=== PATIENT | male | born 1955 | race Caucasian/White ===

== ENCOUNTER → 2016-07-08 | Outpatient (CLI) | payer OTHER ==
[~2016-07-08] MED LIST: CZR25 PO; HYDR-3763 PO; IBUP-1050 PO; LORA10TA5 PO; METH-307 PO
[2016-07-08 09:50] LABS: ALT/SGPT 44 U/L (12-78); AST/SGOT 22 U/L (15-37); BLOOD UREA NITROGEN 18 mg/dl (7-18); BUN/CREATININE RATIO 14.9 (10-20); CALCIUM 9.3 mg/dl (8.5-10.1); CARBON DIOXIDE 21 mmol/L (21-32); CHLORIDE 109 mmol/L (98-107); CHOLESTEROL 200 mg/dl (0-200); GLUCOSE 98 mg/dl (70-99); POTASSIUM 4.4 mmol/L (3.5-5.1); SODIUM 141 mmol/L (136-145); TRIGLYCERIDES 191 mg/dl (0-150); VERY LOW DENSITY LIPOPROT CALC 38 mg/dl
[2016-07-08 09:52] LABS: ALB/GLOB RATIO 1.1 (0.9-2); ALKALINE PHOSPHATASE 51 U/L (45-117); CHOLESTEROL/HDL RATIO 6.5; HDL CHOLESTEROL 31 mg/dl; LDL CHOLESTEROL CALCULATED 131 mg/dl
== END | disposition home or self-care (01) ==
LOC: C.LAB1850 07:52
PROVIDERS: ATTEND Internal Medicine
DX: E78.5 Hyperlipidemia, unspecified (principal); C61 Malignant neoplasm of prostate

== ENCOUNTER → 2016-11-16 | Outpatient (CLI) | payer OTHER | END | disposition home or self-care (01) | LOC: C.LAB1850 11:54 | PROVIDERS: ATTEND Urology | DX: Z85.46 Personal history of malignant neoplasm of prostate (principal) ==

== ENCOUNTER 2017-02-14 05:13 | Day surgery (SDC) | payer BC, OTHER ==
[2017-01-31 11:07] VITALS: BMI 48.0
--- NOTE | 2017-01-31 11:40 | PAT Medication Instructions ---
Service Date Jan 31, 2017. Current Home Medication List Hydrocodon/Acetaminophen 10MG/300MG (Vicodin Hp (10MG/300MG)), 1 TAB PO TID PRN for Pain Ibuprofen (Advil), 200-600 MG PO Q8 PRN for Pain Loratadine (Claritin), 10 MG PO QPM PRN for ALLERGIES Losartan Potassium (Losartan Potassium), 1 TAB PO QAM Methocarbamol (Robaxin), 750 MG PO BID Medication Instructions For Your Scheduled Surgery - Hold the following medications 2 weeks prior to surgery per surgeon's instructions: Ibuprofen (Advil), 200-600 MG PO Q8 PRN for Pain - Hold the following medications the morning of surgery: Methocarbamol (Robaxin), 750 MG PO BID Losartan Potassium (Losartan Potassium), 1 TAB PO QAM - Take the following medications the morning of surgery with a sip of water OTHERWISE NOTHING TO EAT OR DRINK AFTER MIDNIGHT: Hydrocodon/Acetaminophen 10MG/300MG (Vicodin Hp (10MG/300MG)), 1 TAB PO TID PRN for Pain (if needed; up to 4 hours prior to surgery) - Take the following medications as scheduled the night before surgery: Hydrocodon/Acetaminophen 10MG/300MG (Vicodin Hp (10MG/300MG)), 1 TAB PO TID PRN for Pain Methocarbamol (Robaxin), 750 MG PO BID Loratadine (Claritin), 10 MG PO QPM PRN for ALLERGIES If you have any questions please call us at [phone] or [phone] or [phone]
--- NOTE | 2017-01-31 12:27 | DIAGNOSTIC IMAGING REPORT ---
CHEST PREADMISSION(PA/LAT) CLINICAL HISTORY: 61 years-old Male presenting with preoperative assessment, asymptomatic. TECHNIQUE: PA and lateral views of the chest were obtained. COMPARISON: None. FINDINGS: Cardiomediastinal silhouette normal. Lungs and pleural spaces clear. Partially visualized posterior cervical fusion hardware. Degenerative changes of the spine. Upper abdomen normal. IMPRESSION: 1. No acute cardiopulmonary disease. Electronically signed by: Francisco Engel M.D. 01/31/2017 12:25 PM Dictated Date/Time: 01/31/2017 12:25 PM
[2017-01-31 13:00] LABS: BASO % 1.2 %; BASO ABS # 0.08 K/uL (0-0.2); COMPLETE YES; EOS % 3.5 %; HEMATOCRIT 47.4 % (42-52); IG% 0.4 %; LYMPH % 23.9 %; LYMPH ABS # 1.64 K/uL (1.2-3.4); MEAN CELL VOLUME 93.7 fL (80-100); MEAN CORPUSCULAR HEMOGLOBIN 30.8 pg (25-34); MEAN CORPUSCULAR HGB CONC 32.9 g/dl (32-36); MEAN PLATELET VOLUME 9.4 fL (7.4-10.4); MONO % 9.8 %; NEUT % 61.2 %; PLATELET COUNT 282 K/uL (130-400); RED BLOOD COUNT 5.06 M/uL (4.7-6.1); WHITE BLOOD COUNT 6.87 K/uL (4.8-10.8)
[2017-01-31 13:25] LABS: URINE APPEARANCE CLEAR (CLEAR); URINE BILIRUBIN NEG (NEG); URINE COLOR YELLOW; URINE NITRITE NEG (NEG); URINE PH 6.5 (4.5-7.5); URINE SPECIFIC GRAVITY 1.017 (1.000-1.030); UROBILINOGEN NEG (NEG)
[2017-01-31 13:28] LABS: MANUAL MICROSCOPIC REQUIRED? NO; REVIEW REQ? NO
[2017-01-31 13:42] LABS: BUN/CREATININE RATIO 15.8 (10-20); CALCIUM 9.4 mg/dl (8.5-10.1); CREATININE 1.2 mg/dl (0.60-1.40); POTASSIUM 4.5 mmol/L (3.5-5.1)
[~2017-02-14] VITALS: Ht 170.2 cm; Wt 140.1 kg
[2017-02-14 05:35] VITALS: BP 156/97; PULSE 60; TEMP 37.2; O2SAT 96; Ht 170.2 cm; Wt 140.1 kg
[2017-02-14] MEDS ORDERED: LACTATED RINGER'S 1000ML 1,000 ML IV SCH (06:00)
[2017-02-14] MEDS ORDERED: CEFAZOLIN 3000 MG/65 ML D5W IV SCH (06:00)
--- NOTE | 2017-02-14 06:47 | History & Physical Bridge Note ---
H&P Re-Evaluation Bridge Note: I have examined the patient, reviewed the History & Physical and in the interval since the performance of the History & Physical I have noted the following changes of clinical significance: No changes noted
[2017-02-14] MEDS ORDERED: MIDAZOLAM HCL 1 MG/ML 2ML VIAL ONE (06:54)
[2017-02-14] MEDS ORDERED: LIDOCAINE HCL 2% 2 ML VIAL (20MG/ML) ONE (06:54)
[2017-02-14] MEDS ORDERED: PROPOFOL IV EMULSION 10 MG/ML 20 ML VIAL IV ONE (06:54)
[2017-02-14] MEDS ORDERED: DEXAMETHASONE SOD INJ 4 MG/ML VIAL ONE (06:54)
[2017-02-14] MEDS ORDERED: FENTANYL CITRATE INJ 50 MCG/1 ML 2 ML VIAL ONE (06:54)
[2017-02-14] MEDS ORDERED: ONDANSETRON INJ 2 MG/ML 2 ML VIAL ONE (06:54)
[2017-02-14] MEDS ORDERED: CEFAZOLIN SOD 1 GM VIAL ONE (07:13)
[2017-02-14] MEDS ORDERED: LIDOCAINE HCL 1% 20 ML VIAL ONE (07:13)
[2017-02-14] MEDS ORDERED: ATROPINE SULFATE 0.1 MG/ML 5ML SYR IV PRN (08:15)
[2017-02-14] MEDS ORDERED: ONDANSETRON INJ 2 MG/ML 2 ML VIAL IV PRN (08:15)
[2017-02-14] MEDS ORDERED: EpHEDrine SULFATE INJ 50 MG/ML AMP IV PRN (08:15)
--- NOTE | 2017-02-14 08:51 | Discharge Instructions ---
Discharge Instructions Date of Service Feb 14, 2017. Visit Reason for Visit: Prostate Cancer Discharge Discharge Diagnosis / Problem: prostate cancer Discharge Goals Goal(s): Therapeutic intervention Activity Recommendations Activity Limitations: per Instructions/Follow-up section Lifting Limitations: no more than 10 pounds Exercise/Sports Limitations: until after follow-up appointment May Resume Sexual Activity: after follow-up appointment Shower/Bathe: tomorrow Driving or Machine Use: resume 3 days after discharge Anesthesia . Post Anesthesia Instructions: If you have had General Anesthesia or IV Sedation: * Do not drive today. * Resume driving when surgeon permits. * Do not make important decisions or sign legal documents today. * Call surgeon for: 1. Temperature elevations greater than 101 degrees F. 2. Uncontrollable pain. 3. Excessive bleeding. 4. Persistent nausea and vomiting. 5. Medication intolerance (nausea, vomiting or rash). * For nausea and vomiting use only clear liquids such as: tea, soda, bouillon until nausea subsides, then gradually increase diet as tolerated. * If you have any concerns or questions, call your surgeon's office. If physician is unavailable and it is an emergency, call 911 or go to the nearest emergency room. . Diet Recommendations Recommended Home Diet: resume previous diet Procedures Procedures Performed: Bilateral Scrotal Orchiectomy (Simple) Pending Studies Studies pending at discharge: no Medical Emergencies . Who to Call and When: Medical Emergencies: If at any time you feel your situation is an emergency, please call 911 immediately. . Non-Emergent Contact Non-Emergency issues call your: Urologist Call Non-Emergent contact if: temperature is above 101.5, your pain is not controlled . . "Provider Documentation" section prepared by Silas Rondon. .
[2017-02-14] MEDS: FENTANYL CITRATE INJ 50 MCG/1 ML 2 ML VIAL IV PRN ×4 (08:57→09:19)
[2017-02-14] MEDS ORDERED: OXYCODONE/ACETAMINOPHEN 7.5-325 TAB PO PRN (09:00)
[2017-02-14] MEDS: HYDROmorphone INJ 1 MG/ML SYR IV PRN ×2 (09:22→09:27)
--- NOTE | 2017-02-14 10:12 | Anesthesiology Progress Note ---
Anesthesia Post Op Note Date & Time Feb 14, 2017 at 10:11 Vital Signs Pain Intensity: 4 Vital Signs Past 12 Hours Date Time Temp Pulse Resp B/P (MAP) Pulse Ox O2 Delivery O2 Flow Rate FiO2 02/14/17 10:08 68 14 94 02/14/17 10:08 71 14 02/14/17 10:06 157/102 02/14/17 10:03 62 13 95 02/14/17 10:03 64 13 02/14/17 10:01 178/89 02/14/17 09:58 62 17 97 02/14/17 09:58 60 17 02/14/17 09:57 59 13 02/14/17 09:57 60 13 97 02/14/17 09:56 158/89 02/14/17 09:52 52 12 02/14/17 09:52 48 12 96 02/14/17 09:51 160/95 02/14/17 09:50 56 14 97 02/14/17 09:50 56 14 02/14/17 09:48 164/91 02/14/17 09:46 170/93 02/14/17 09:45 62 13 96 02/14/17 09:45 62 13 02/14/17 09:41 163/95 02/14/17 09:40 55 15 97 02/14/17 09:40 58 15 02/14/17 09:39 61 15 02/14/17 09:39 61 15 96 02/14/17 09:36 155/97 02/14/17 09:34 64 14 02/14/17 09:34 61 14 171/97 96 02/14/17 09:31 153/104 02/14/17 09:31 36.7 61 16 155/97 96 Room Air Nasal Cannula 02/14/17 09:29 60 14 02/14/17 09:29 59 14 97 02/14/17 09:28 58 13 02/14/17 09:28 56 13 95 02/14/17 09:26 149/92 02/14/17 09:23 60 20 02/14/17 09:23 62 20 98 02/14/17 09:21 160/86 02/14/17 09:18 60 10 02/14/17 09:18 59 10 96 02/14/17 09:17 171/93 02/14/17 09:16 183/102 02/14/17 09:13 63 11 02/14/17 09:13 63 11 99 02/14/17 09:11 162/92 02/14/17 09:08 60 17 02/14/17 09:08 60 17 98 02/14/17 09:06 161/102 02/14/17 09:03 66 10 97 02/14/17 09:03 66 10 02/14/17 09:01 147/91 02/14/17 08:58 62 14 97 02/14/17 08:58 63 14 02/14/17 08:56 153/87 02/14/17 08:53 62 16 98 02/14/17 08:53 61 16 02/14/17 08:51 150/97 02/14/17 08:49 154/97 02/14/17 08:48 69 12 02/14/17 08:48 69 12 98 02/14/17 08:48 36.0 63 16 154/97 96 Nasal Cannula 10 02/14/17 05:35 37.2 60 20 156/97 (116) 96 Room Air Notes Mental Status: alert / awake / arousable, participated in evaluation Pt Amnestic to Procedure: Yes Nausea / Vomiting: adequately controlled Pain: adequately controlled Airway Patency, RR, SpO2: stable & adequate BP & HR: stable & adequate Hydration State: stable & adequate Anesthetic Complications: no major complications apparent
--- NOTE | 2017-02-14 10:27 | [facility] Operative Report ---
Operative Report Operative Date Feb 14, 2017. Pre-Operative Diagnosis Malignant neoplasm of prostate Post-Operative Diagnosis Malignant neoplasm of prostate Procedure(s) Performed Bilateral Scrotal Orchiectomy (Simple) Surgeon Dr. Silas Rondon Atv Mechanic Surgeon(s) None Estimated Blood Loss 5mL Findings Normal testicles left and right. The right testicle was somewhat scarred in from a prior hydrocelectomy Specimens Specimen A. Right Testes B. Left Testes Drains none Anesthesia Gen. 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 He has elected to have a bilateral scrotal orchiectomy Description of Procedure Patient was brought to the operating room placed supine on the table. After the induction of an adequate general anesthetic and appropriate timeout patient' s lower abdomen and genitalia were prepped with Betadine and draped in a sterile fashion. An incision was made along the median raphae of the scrotum being carried down through skin and subcutaneous tissues through the dartos the right testicle was then brought over to the incision. This testicle was somewhat adherent to the surrounding tissues. After dissecting the right testicle free from the surrounding tissues the vas was identified and dissected free from the rest of the cord clamped and ligated with 0 silk the cord structures were then into packets they were clamped transected and then the proximal ends were ligated with a 0 silk ligature and then a 0 silk suture ligature after completing the removal of the right testicle identical procedure was performed on the left side. After removing both testicles any bleeding points were coagulated the wound was irrigated with sterile saline and reinspected there was no evidence of any bleeding from the cord structures the wound was then closed in the following fashion. The dartos layer was reapproximated with a running 2-0 Vicryl stitch. The skin was then closed with interrupted 2-0 chromic. The incision site was then infiltrated with 5 cc of 1 % plain lidocaine. The wound was then washed and dried and Xeroform gauze fluff gauze and a scrotal support were applied. All needle sponges and instrument counts were correct at the end of the case. The patient tolerated the procedure well and was taken to the recovery room in stable condition I attest to the content of the Intraoperative Record and any orders documented therein. Any exceptions are noted below.
[2017-02-14 10:30] VITALS: BP 160/48; PULSE 63; TEMP 36.9; O2SAT 93
[2017-02-14 11:10] VITALS: BP 165/78; PULSE 66; TEMP 36.8; O2SAT 94
== END 2017-02-14 11:24 | disposition home or self-care (01) ==
LOC: C.ACU 05:13
PROVIDERS: ATTEND Urology
DX: C61 Malignant neoplasm of prostate (principal); N50.0 Atrophy of testis; I10 Essential (primary) hypertension; E78.5 Hyperlipidemia, unspecified; R73.9 Hyperglycemia, unspecified; E66.01 Morbid (severe) obesity due to excess calories; Z79.899 Other long term (current) drug therapy

== ENCOUNTER → 2017-04-18 | Outpatient (CLI) | payer BC | END | disposition home or self-care (01) | LOC: C.LABPBG 13:05 | PROVIDERS: ATTEND Urology | DX: C61 Malignant neoplasm of prostate (principal) ==

== ENCOUNTER → 2017-12-27 | Outpatient (CLI) | payer BC ==
[~2017-12-27] MED LIST changes: +HYDR-4079 PO; -LORA10TA5 PO; +LORA10TA6 PO
--- NOTE | 2017-12-27 10:35 | DIAGNOSTIC IMAGING REPORT ---
C-SPINE ROUTINE W/FLEX EXT HISTORY: Pain CERVICALGIA,CERVICAL POST LAMINECTOMY SYNDROM COMPARISON: None. FINDINGS: The cervical spine is imaged in multiple projections with additional images where with the patient in flexion as well as extension. There are postoperative changes produces described consistent with laminectomy and fusion at the low cervical and upper thoracic region. The low cervical fusion is anterior with the upper thoracic fusion posterior. There is no evidence for subluxation with the patient in flexion or extension. Fusion sites appear to be intact. No subluxation. Disc spaces are preserved. Prevertebral soft tissues and the atlantodens interval are intact. IMPRESSION: 1. Degenerative and postoperative change. 2. No evidence for subluxation with the patient in flexion or extension. The above report was generated using voice recognition software. It may contain grammatical, syntax or spelling errors. Electronically signed by: Bhanu Fischer M.D. 12/27/2017 10:33 AM Dictated Date/Time: 12/27/2017 10:31 AM
--- NOTE | 2017-12-27 11:12 | DIAGNOSTIC IMAGING REPORT ---
THORACIC SPINE 3 VIEWS ROUTINE HISTORY: Pain CERVICALGIA,CERVICAL POST LAMINECTOMY SYNDROM COMPARISON: None. FINDINGS: There is no fracture. No subluxation. Moderate generalized degenerative disc change throughout. No evidence for compression deformity. Moderate reactive osteophytic change throughout. IMPRESSION: Moderate generalized degenerative change of the entire thoracic region. No acute process. Postoperative changes low cervical and upper thoracic region previously described. The above report was generated using voice recognition software. It may contain grammatical, syntax or spelling errors. Electronically signed by: Bhanu Fischer M.D. 12/27/2017 11:11 AM Dictated Date/Time: 12/27/2017 11:10 AM
== END | disposition home or self-care (01) ==
LOC: C.RADBC 09:49
PROVIDERS: ATTEND Physician Assistant
DX: M47.812 Spondylosis without myelopathy or radiculopathy, cervical region (principal); M47.814 Spondylosis without myelopathy or radiculopathy, thoracic region; M96.1 Postlaminectomy syndrome, not elsewhere classified

== ENCOUNTER → 2018-01-13 | Outpatient (CLI) | payer BC ==
[~2018-01-13] MED LIST changes: -HYDR-3763 PO
[2018-01-13 14:22] LABS: BLOOD UREA NITROGEN 19 mg/dl (7-18); CALCIUM 9.5 mg/dl (8.5-10.1); CARBON DIOXIDE 20 mmol/L (21-32); CREATININE 1.17 mg/dl (0.60-1.40); GLUCOSE 127 mg/dl (70-99); SODIUM 138 mmol/L (136-145)
== END | disposition home or self-care (01) ==
LOC: C.LABPBG 08:23
PROVIDERS: ATTEND Urology
DX: M54.5 Low back pain (principal); C61 Malignant neoplasm of prostate

== ENCOUNTER 2023-06-24 05:10 | Observation (INO) ==
[2023-06-24 06:05] LABS: Appearance Urine Turbid (Clear); Bacteria Urine Automated Negative (Negative); Bilirubin Urine Negative (Negative); Blood Urine 3+ (Negative); Color Urine Orange; Epithelial Cell Urine Auto 0-5 /lpf (0-5); Glucose Urine UA Negative (Negative); Ketones Urine Negative (Negative); Leukocyte Esterase Urine 1+ (Negative); Nitrite Urine Negative (Negative); Protein Urine 2+ (Negative); Specific Gravity Urine 1.019 (1.000-1.030); Urobilinogen Urine Negative (Negative); WBC Urine Automated >30 /hpf (0-5)
[2023-06-24 06:10] LABS: Basophils # (auto) 0.07 K/uL (0.00-0.20); Basophils % (auto) 0.8 %; Eosinophils # (auto) 0.55 K/uL (0.00-0.50); Eosinophils % (auto) 6.5 %; Hematocrit (blood only) 42.2 % (42.0-52.0); Hemoglobin 14.1 g/dl (14.0-18.0); Immature Granulocytes # (auto) 0.04 K/uL (0.01-0.20); Immature Granulocytes % (auto) 0.5 %; Lymphocytes # (auto) 1.11 K/uL (1.20-3.40); Lymphocytes % (auto) 13.2 %; Mean Corpuscular Hemoglobin 30.3 pg (25.0-34.0); Mean Corpuscular Hgb Conc 33.4 g/dL (32.0-36.0); Mean Corpuscular Volume 90.8 fL (80.0-100.0); Mean Platelet Volume 9.1 fL (9.4-12.4); Monocytes # (auto) 0.71 K/uL (0.11-0.59); Monocytes % (auto) 8.4 %; Neutrophils # (auto) 5.94 K/uL (1.40-6.50); Neutrophils % (auto) 70.6 %; Platelet Count 289 K/uL (130-400); RDW Coefficient of Variation 12.9 % (11.5-14.5); RDW Standard Deviation 42.5 fL (36.4-46.3); Red Blood Count 4.65 M/uL (4.70-6.10); White Blood Count 8.42 K/ul (4.8-10.8)
[2023-06-24 06:15] LABS: RBC Urine Automated >30 /hpf (0-4)
[2023-06-24 06:23] LABS: Albumin Globulin Ratio 1.7 (0.9-2); Albumin Level 4.2 gm/dl (3.4-5.0); BUN Creatinine Ratio 21.1 (10-20); Bilirubin,Total 0.6 mg/dl (0.2-1.0); Calcium 9.9 mg/dl (8.6-10.3); Creatinine Clr Calc Pharmacy 68.3 ml/min; Est GFR (African American) 67.1 ml/min; Est GFR (Non-African American) 57.9 ml/min; Globulin 2.5 gm/dl (2.5-4.0); Magnesium 1.6 mg/dl (1.7-2.4); Potassium 3.5 mmol/L (3.5-5.1); Total Protein 6.7 gm/dl (6.0-8.3)
[2023-06-24] MEDS: fentaNYL citrate PF 100 MCG/2 ML VIAL IV STA (06:33)
[2023-06-24] MEDS: MAGNESIUM SULFATE / D5W 1 GM/100 ML BAG IV STA (06:33)
[2023-06-24] MEDS: SODIUM CHLORIDE 0.9% 1,000 ML IV ONE (06:37)
--- NOTE | 2023-06-24 06:47 | CT Scan Report ---
ABDOMEN AND PELVIS CT WITHOUT CONTRAST CT DOSE: 1888.94 mGy.cm HISTORY: Generalized abdominal pain. TECHNIQUE: Multiaxial CT images of the abdomen and pelvis were performed without contrast. A dose lo wering technique was utilized adhering to the principles of ALARA. COMPARISON STUDY: Abdomen and pelvis CT 11/17/2022. FINDINGS: There are few punctate calcified granulomas within the lung bases. There is a stable 3 mm n odule within the left lower lobe on image 28. No pneumoperitoneum. No pneumatosis. Old, healed right pubic ring fracture. The unenhanced liver, gallbladder, pancreas, spleen, adrenal glands are unremark able. Mild calcified plaque within the normal caliber abdominal aorta. No retroperitoneal or pelvic l ymphadenopathy. Stable stones within the lower pole the right kidney with the largest measuring 16 mm . These result in focal dilatation of the right lower pole calyx. This remains unchanged. Left greate r than right perinephric edema. There is mild left hydroureteronephrosis secondary to an obstructing 5 mm stone within the distal left ureter on image 310. There is diffuse bladder wall thickening with adjacent fat stranding. Asymmetric lobular appearance to the left bladder base on image 325. This may represent the prostate gland but is difficult to characterize due to the underdistended bladder. Sub optimal evaluation for bowel pathology due to the lack of intravenous and oral contrast. However, the re is no definite bowel wall thickening or obstruction. Normal appendix. Colonic diverticulosis. No e vidence for acute diverticulitis. IMPRESSION: 1. A 5 mm obstructing stone within the distal left ureter resulting in mild left hydronephrosis. 2. There are 2 stones within the lower pole the right kidney resulting in focal dilatation of the rig ht lower pole calyx. This remains unchanged. 3. Focal lobular thickening within the left bladder base which may represent the enlarged prostate gl and. However, follow-up urology consultation and possible cystoscopy recommended to exclude the possi bility of a bladder lesion. 4. Additional findings as described above. ACT 112: Positive. There are findings on this exam that require communication between the performing entity and the patient following Patient Test Result Information Act ([place] Act 112) guidelines. Electronically signed by: Stanley Lewis M.D. 06/24/2023 6:44 AM
[2023-06-24] MEDS: HYDROmorphone INJ 0.5 MG/0.5 ML SYR IV PRN ×3 (07:04→15:17)
--- NOTE | 2023-06-24 08:10 | Emergency Department Note ---
Impression & Plan Ureterolithiasis, Prostate cancer metastatic to bone ED Provider Note NAME: ABDULKADIR NAVARRO AGE: 67 SEX: Male INFORMANT: Patient ED PROVIDER(S): Guillaume Gomez MD CHIEF COMPLAINT: Flank pain PLAN: Disposition: Admitted Outpatient prescription management: none Referral: None MEDICAL DECISION MAKING: Patient presented because of flank pain. Laboratory testing and CT imaging ordered. Patient was having extreme pain despite his fentanyl patch. He was given a dose of IV fentanyl and was still very uncomfortable. CT imaging reveals presence of a left distal ureteral stone that is fairly sizable at [address] indicated this was within the left kidney. Patient does have a staghorn like stone in the right kidney which appears unchanged. His CBC and chemistry panels were unremarkable except for mildly low magnesium. Patient was hydrated, given IV magnesium and also given IV Dilaudid. He was more comfortable with the Dilaudid. Pain control be difficult for him as an outpatient. Placed a consult with urology and discussed the case. They will follow and consult on the patient. Consultation was made with the [facility] hospitalist service for admission, pain management and urology input. Care/management discussed with: redevelopment manager Level of care consideration(s): After review of the information above and other included data, I feel the patient requires escalation of care to admission Triage Nursing notes: reviewed and agree them. Vital Signs: reviewed and remarkable for no significant abnormalities Additional History obtained from: Patient significant other. Patient follows with [facility] urology. Chronic Medical/Social Conditions affecting care: Metastatic prostate cancer Prior/ Outside/ External records reviewed: none Differential Diagnosis: Renal colic, UTI, appendicitis, diverticulitis, mesenteric ischemia, aortic pathology, infections, inflammatory bowel disease, PUD, biliary pathology, as well as other pathologies. Diagnostics, independently interpreted by me: ECG: none Cardiac Monitoring: none Medical decision rules: none Imaging studies: CT reveals left ureteral stone and right staghorn. HPI: 67 year old Male arrives for evaluation of flank pain. This started this morning and he rates it as a 10 out of 10. He felt like he may have some diarrhea, abdominal and has pain radiating from his kidneys down towards his groin. Patient also noted itchy feet and nausea but that has resolved. Patient is undergoing chemotherapy for metastatic prostate cancer. He is also dealing with pain management and is wearing a fentanyl patch. No relieving factors were noted. Patient does have a history of kidney stone. Pt denies LOC, headache, fevers, chills, diaphoresis, visual changes, neck pain, chest pain, breathing difficulties, melena, hematochezia, urinary symptoms, numbness, weakness, lymphadenopathy, rash, or other complaints. PAST MEDICAL HISTORY: See Below, prostate cancer, kidney stones PAST SURGICAL HISTORY: See Below, SOCIAL HISTORY: See Below, non-smoker HOME MEDICATIONS: See Below ALLERGIES: See Below VITALS: See Below PHYSICAL EXAMINATION: GENERAL: Awake, alert, uncomfortable-appearing, in no distress HENT: Normocephalic, atraumatic. Oropharynx unremarkable. EYES: Normal conjunctiva. Sclera non-icteric. NECK: Inspection normal. Non-tender. Supple. No nuchal rigidity. FROM. No masses. RESPIRATORY: Clear to auscultation. No wheezes. No rales. Normal respiratory effort. CARDIAC: Normal rate. Normal rhythm. No murmurs. No rubs. Extremities warm and well perfused. Pulses equal. No JVD. GI: Soft, non-distended. Super tenderness to palpation. No rebound or guarding. No masses. RECTAL: Deferred. MUSCULOSKELETAL: Atraumatic. Chest examination reveals no tenderness. The back is symmetrical on inspection without obvious abnormality. There is bilateral CVA tenderness to palpation. No joint edema. LOWER EXTREMITIES: Calves are equal size bilaterally and non-tender. No edema. No discoloration. NEURO: Normal sensorium. No sensory or motor deficits noted. SKIN: No rash or jaundice noted. PROCEDURES: none CRITICAL CARE: none OBSERVATION NOTE: none Past Med/Surg History Medical History History of COVID-19 11/2021 Eczema Left breast lump First reported present 08/2019 Nephrolithiasis Chronic scapular pain Obesity Pelvic pain in male Cervical postlaminectomy syndrome History of pelvic fracture Prostate cancer Dx , s/p surgery, radiation, current chemo (+ prednisone 5mg daily) Hypertension Hyperlipidemia Arthritis Surgical History History of surgery Procedure was aborted in middle of an attempted prostatectomy due to previous pelvis surgery complication, radiation to treat cancer History of laminectomy cervical > restricted movement side to side slightly History of pelvic surgery several years ago History of surgery on wrist right History of nasal sinusotomy History of removal of cyst right wrist History of prostate biopsy malignant Hx of vasectomy History of lithotripsy History of bladder repair surgery repair of bladder/urethra History of colonoscopy History of tooth extraction wisdom teeth S/P cervical spinal fusion x2 (2000, 2007) ACDF C5-6 and posterior fusion T1-2 History of tonsillectomy and adenoidectomy + UPPP + soft palate "tightening" (done d/t recurrent tonsillitis per patient) History of orchiectomy, bilateral 09/14/16: LMA#[address] [facility] Family History Mother , 98yo Breast cancer Father , 68yo Pulmonary embolism Following knee replacement Sister No problems noted. Sister Diabetes Sister Dementia Son No problems noted. Son No problems noted. 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 How many Children do You have: 2 Other Information That Helps Us Care for You: No Feels Safe at Home: Yes Safety Concerns: Feels Safe At This Time Diet: regular caffeine: Yes (3 cups/day) during the past year weight has: remained stable Dental Care, Regularly: Yes Seatbelt Use: always Sunscreen Use: No Assistive Devices: Cane and Walker Allergies Allergies Allergy/AdvReac Type Severity Reaction Status Date / Time pregabalin Allergy Mild GI symptoms Verified 06/17/23 07:13 azithromycin Allergy Unknown Rash Verified 06/17/23 07:13 ezetimibe [From Zetia] Allergy Unknown Verified 06/17/23 07:13 Wpsrhdo-HHL-TdL Reductase AdvReac Mild Pain Verified 06/17/23 07:13 Inhibitor [Gukvugg-Tay-Sfc Reductase Inhibitor] enalapril AdvReac Unknown Verified 06/17/23 07:13 erythromycin base AdvReac Unknown Verified 06/17/23 07:13 levaquin AdvReac Intermediate Dizziness Uncoded 06/17/23 07:13 Home Meds Home Medications Medication Instructions Recorded Confirmed loratadine 10 mg tablet (Claritin) 10 mg PO DAILY PRN Allergy Symptoms 02/20/18 06/24/23 diclofenac sodium 1 % topical gel 2 g topical QID PRN Pain 07/13/22 06/24/23 (Voltaren) multivitamin 1 tab PO QAM 07/13/22 06/24/23 prednisone 5 mg tablet 5 mg PO QAM 09/09/22 06/24/23 prochlorperazine maleate 10 mg 10 mg PO UD PRN Nausea And Vomiting 09/09/22 06/24/23 tablet oxycodone 10 mg tablet 10 mg PO Q4H 11/17/22 06/24/23 abiraterone 250 mg tablet 1,000 mg PO QAM 11/25/22 06/24/23 montelukast 10 mg tablet 10 mg PO PM 11/25/22 06/24/23 (Singulair) fentanyl 75 mcg/hr transdermal 1 patch transdermal Q72H 01/07/23 06/24/23 patch nystatin-triamcinolone 100,000 1 applic topical BID PRN Rash 06/24/23 06/24/23 unit/g-0.1 % topical cream triamcinolone acetonide 0.1 % 1 applic topical BID PRN Rash 06/24/23 06/24/23 topical cream Previous Rx's Medication Instructions Recorded betamethasone dipropionate 0.05 % 1 applic topical BID PRN skin 08/26/20 topical cream irritation #15 grams methocarbamol 750 mg tablet 750 mg PO BID PRN Muscle Spasm #60 01/12/23 tabs alfuzosin 10 mg tablet,extended 10 mg PO DAILY #90 tabs 03/04/23 release 24 hr (Uroxatral) trazodone 50 mg tablet 50 - 100 mg (1 - 2 x 50 mg) PO HS 04/04/23 #60 tabs duloxetine 30 mg capsule,delayed 30 mg PO QAM #90 caps 04/21/23 release losartan 50 mg tablet 50 mg PO QAM #90 tabs 06/12/23 naloxone 4 mg/actuation nasal spray 4 mg intranasal Q2M PRN as 06/17/23 directed #2 ea Results & Data (ED) Vital Signs Vital Signs - 24 hr 06/24/23 05:13 06/24/23 05:16 06/24/23 07:04 Temperature 36.6 C Temperature Source Temporal Artery Scan Pulse Rate 103 H Pulse Rate [Apical] 70 Respiratory Rate 20 20 Respiratory Effort / Characteristics Non-Labored Spontaneous Non-Labored Spontaneous Respiratory Depth Normal Normal Normal Blood Pressure 178/90 H Blood Pressure [Left Arm] 184/95 H Blood Pressure Mean 119 Blood Pressure Mean [Left Arm] 124 Pulse Oximetry 98 94 Oxygen Delivery Method Room Air Room Air Sepsis New/Unexplained Change in Mental Status No Sepsis Action Taken by Nursing No Action Required 06/24/23 08:14 06/24/23 08:42 Temperature Temperature Source Pulse Rate 63 Pulse Rate [Apical] 72 Respiratory Rate 16 Respiratory Effort / Characteristics Respiratory Depth Normal Blood Pressure Blood Pressure [Left Arm] 162/83 H Blood Pressure Mean Blood Pressure Mean [Left Arm] 109 Pulse Oximetry 98 Oxygen Delivery Method Room Air Sepsis New/Unexplained Change in Mental Status Sepsis Action Taken by Nursing Laboratory Data 06/24/23 05:47 06/24/23 05:47 Lab Results 06/24/23 06/24/23 Range/Units 05:47 05:49 WBC 8.42 (4.8-10.8) K/ul RBC 4.65 L (4.70-6.10) M/uL Hgb 14.1 (14.0-18.0) g/dl Hct 42.2 (42.0-52.0) % MCV 90.8 (80.0-100.0) fL MCH 30.3 (25.0-34.0) pg MCHC 33.4 (32.0-36.0) g/dL RDW Std Deviation 42.5 (36.4-46.3) fL RDW Coeff of Shari 12.9 (11.5-14.5) % Plt Count 289 (130-400) K/uL MPV 9.1 L (9.4-12.4) fL Immature Gran % (Auto) 0.5 % Neut % (Auto) 70.6 % Lymph % (Auto) 13.2 % Pettis % (Auto) 8.4 % Eos % (Auto) 6.5 % Baso % (Auto) 0.8 % Neut # (Auto) 5.94 (1.40-6.50) K/uL Lymph # (Auto) 1.11 L (1.20-3.40) K/uL Pettis # (Auto) 0.71 H (0.11-0.59) K/uL Eos # (Auto) 0.55 H (0.00-0.50) K/uL Baso # (Auto) 0.07 (0.00-0.20) K/uL Immature Gran # (Auto) 0.04 (0.01-0.20) K/uL Sodium 138 (136-145) mmol/L Potassium 3.5 (3.5-5.1) mmol/L Chloride 105 (98-107) mmol/L Carbon Dioxide 22 (21-32) mmol/L Anion Gap 11 (3-11) BUN 27 H (6-23) mg/dl Creatinine 1.28 (0.6-1.4) mg/dl Est Cr Clr Drug Dosing 68.3 ml/min Est GFR ( Amer) 67.1 ml/min Est GFR (Non-Af Amer) 57.9 ml/min BUN/Creatinine Ratio 21.1 H (10-20) Glucose 118 H (70-99(Fasting)) mg/dl Calcium 9.9 (8.6-10.3) mg/dl Magnesium 1.6 L (1.7-2.4) mg/dl Total Bilirubin 0.6 (0.2-1.0) mg/dl AST 13 (13-39) U/L ALT 11 (7-52) U/L Alkaline Phosphatase 55 (34-104) U/L Ammonia 21.0 (18-72) umol/L Total Protein 6.7 (6.0-8.3) gm/dl Albumin 4.2 (3.4-5.0) gm/dl Globulin 2.5 (2.5-4.0) gm/dl Albumin/Globulin Ratio 1.7 (0.9-2) Urine Color [place] Urine Appearance Turbid A (Clear) Urine pH 5.0 (4.5-7.5) Ur Specific [place] 1.019 (1.000-1.030) Urine Protein 2+ H (Negative) Urine Glucose (UA) Negative (Negative) Urine Ketones Negative (Negative) Urine Blood 3+ H (Negative) Urine Nitrite Negative (Negative) Urine Bilirubin Negative (Negative) Urine Urobilinogen Negative (Negative) Ur Leukocyte Esterase 1+ H (Negative) Urine WBC (Auto) >30 H (0-5) /hpf Urine RBC (Auto) >30 H (0-4) /hpf U Hyaline Cast (Auto) 1-5 (0-5) /lpf U Epithel Cells (Auto) 0-5 (0-5) /lpf Urine Bacteria (Auto) Negative (Negative) Urine Yeast Not Reportable Administered Medications Duloxetine HCl (Duloxetine Hcl 30 Mg Cap) 30 mg PO QAM LISSET Stop: 07/24/23 09:14 Last Admin: 06/24/23 17:32 Dose: 30 mg Documented By: LORENZA Enoxaparin Sodium (Enoxaparin Inj 40 Mg/0.4 Ml Syr) 40 mg SQ Q24H LISSET Stop: 07/24/23 11:59 Last Admin: 06/24/23 17:21 Dose: Not Given Documented By: LORENZA Fentanyl Citrate (Fentanyl Citrate Pf 100 Mcg/2 Ml Vial) 25 mcg IV Q5M PRN PRN Reason: PACU Use Only-Pain Stop: 06/24/23 20:56 Last Admin: 06/24/23 14:42 Dose: 25 mcg Documented By: Admin: 06/24/23 14:37 Dose: 25 mcg Documented By: Admin: 06/24/23 14:32 Dose: 25 mcg Documented By: Admin: 06/24/23 14:27 Dose: 25 mcg Documented By: TERESA Hydromorphone HCl (Hydromorphone Inj 0.5 Mg/0.5 Ml Syr) 1 mg IV Q30M PRN PRN Reason: Pain Stop: 07/08/23 06:48 Last Admin: 06/24/23 18:25 Dose: 1 mg Documented By: Admin: 06/24/23 17:28 Dose: 1 mg Documented By: Admin: 06/24/23 16:20 Dose: 1 mg Documented By: Admin: 06/24/23 10:24 Dose: 1 mg Documented By: IRVIN Hydromorphone HCl (Hydromorphone Inj 0.5 Mg/0.5 Ml Syr) 0.25 mg IV Q5M PRN PRN Reason: Pain Last Admin: 06/24/23 15:29 Dose: 0.25 mg Documented By: Admin: 06/24/23 15:24 Dose: 0.25 mg Documented By: Admin: 06/24/23 15:17 Dose: 0.25 mg Documented By: TERESA Lactated Ringer's (Lr) 1,000 mls @ 15 mls/hr IV .Q24H LISSET Stop: 07/24/23 12:44 Last Infusion: 06/24/23 12:53 Dose: Infused Documented By: Admin: 06/24/23 12:37 Dose: 15 mls/hr Documented By: Losartan Potassium (Losartan Potassium 50 Mg Tab) 50 mg PO QAM [facility] Stop: 07/24/23 09:14 Last Admin: 06/24/23 17:31 Dose: 50 mg Documented By: LORENZA Gonzalez (Check Fentanyl Patch Placement) 1 each N/A QS [facility] Stop: 07/24/23 16:59 Last Admin: 06/24/23 17:32 Dose: 1 each Documented By: LORENZA Gonzalez (Abiraterone 250 Mg Tablet: Order Awaiting Action) 1 each N/A QS [facility] Stop: 07/24/23 15:59 Last Admin: 06/24/23 17:33 Dose: Not Given Documented By: LORENZA Prednisone (Pred[facility] 5 Mg Tab) [facility] [place] [facility]: 07/24/23 09:14 Last Admin: 06/24/23 17:32 Dose: 5 mg Documented By: LORENZA Tamsulosin HCl (Tamsulosin Hcl 0.4 Mg Cap) 0.4 mg PO DAILY [facility] Stop: 07/24/23 11:29 Last Admin: 06/24/23 17:31 Dose: 0.4 mg Documented By: LORENZA Discontinued Medications Diatrizoate Meglumine (Diatrizoate Meglumine 30% 100ml Vial) 50 ml INSTIL ONE ONE Stop: 06/24/23 14:03 Last Admin: 06/24/23 14:06 Dose: 50 ml Documented By: [id number] Fentanyl Citrate (Fentanyl Citrate Pf 100 Mcg/2 Ml Vial) 50 mcg IV NOW STA Stop: 06/24/23 06:27 Last Admin: 06/24/23 06:33 Dose: 50 mcg Documented By: CAMI Hydromorphone HCl (Hydromorphone Inj 0.5 Mg/0.5 Ml Syr) 0.5 mg IV Q15M PRN PRN Reason: Pain Stop: 07/08/23 06:48 Last Admin: 06/24/23 08:39 Dose: 0.5 mg Documented By: Admin: 06/24/23 07:04 Dose: 0.5 mg Documented By: IRVIN Hydromorphone HCl (Hydromorphone Inj 0.5 Mg/0.5 Ml Syr) 0.25 mg IV NOW STA Stop: 06/24/23 14:52 Last Admin: 06/24/23 15:07 Dose: 0.25 mg Documented By: Admin: 06/24/23 15:02 Dose: 0.25 mg Documented By: TERESA Hydromorphone HCl (Hydromorphone Inj 1 Mg/Ml Syringe) Confirm Administered Dose 1 mg .ROUTE .STK-MED ONE Stop: 06/24/23 15:19 Last Admin: 06/24/23 15:19 Dose: Not Given Documented By: TERESA Sodium Chloride (Nss) 1,000 mls @ 999 mls/hr IV .Q1H1M ONE Stop: 06/24/23 07:26 Last Infusion: 06/24/23 08:07 Dose: Infused Documented By: Admin: 06/24/23 06:37 Dose: 999 mls/hr Documented By: TICO Magnesium Sulfate/Dextrose (Magnesium Sulfate / D5w) 1 gm in 100 mls @ 100 mls/hr IV NOW STA Stop: 06/24/23 07:25 Last Infusion: 06/24/23 07:38 Dose: Infused Documented By: Admin: 06/24/23 06:33 Dose: 100 mls/hr Documented By: TICO Cefazolin Sodium (Ancef 2000mg) 2,000 mg in 15 mls @ 3.75 mls/min IV PREOP LISSET; Protocol Stop: 06/24/23 18:00 Last Admin: 06/24/23 12:53 Dose: 3.75 mls/min Documented By: SAI Imaging Data Radiologist's Impression: Abdomen/Pelvis CT 06/24/23 05:[address] WITHOUT CONTRAST CT DOSE: 1888.94 mGy.cm HISTORY: Generalized abdominal pain. TECHNIQUE: Multiaxial CT images of the abdomen and pelvis were performed without contrast. A dose lowering technique was utilized adhering to the principles of ALARA. COMPARISON STUDY: Abdomen and pelvis CT 11/17/2022. FINDINGS: There are few punctate calcified granulomas within the lung bases. There is a stable 3 mm nodule within the left lower lobe on image 28. No pneumoperitoneum. No pneumatosis. Old, healed right pubic ring fracture. The unenhanced liver, gallbladder, pancreas, spleen, adrenal glands are unremarkable. Mild calcified plaque within the normal caliber abdominal aorta. No retroperitoneal or pelvic lymphadenopathy. Stable stones within the lower pole the right kidney with the largest measuring 16 mm. These result in focal dilatation of the right lower pole calyx. This remains unchanged. Left greater than right perinephric edema. There is mild left hydroureteronephrosis secondary to an obstructing 5 mm stone within the distal left ureter on image 310. There is diffuse bladder wall thickening with adjacent fat stranding. Asymmetric lobular appearance to the left bladder base on image 325. This may represent the prostate gland but is difficult to characterize due to the underdistended bladder. Suboptimal evaluation for bowel pathology due to the lack of intravenous and oral contrast. However, there is no definite bowel wall thickening or obstruction. Normal appendix. Colonic diverticulosis. No evidence for acute diverticulitis. IMPRESSION: 1. A 5 mm obstructing stone within the distal left ureter resulting in mild left hydronephrosis. 2. There are 2 stones within the lower pole the right kidney resulting in focal dilatation of the right lower pole calyx. This remains unchanged. 3. Focal lobular thickening within the left bladder base which may represent the enlarged prostate gland. However, follow-up urology consultation and possible cystoscopy recommended to exclude the possibility of a bladder lesion. 4. Additional findings as described above. ACT 112: Positive. There are findings on this exam that require communication between the performing entity and the patient following Patient Test Result Information Act ([place] Act 112) guidelines. Electronically signed by: Stanley Lewis M.D. 06/24/2023 6:44 AM Discharge Plan Visit Data Chief Complaint: Kidney Stone Stated Complaint: POSS ALLERGIC REACTION TO MEDICATION/KIDNEY STONE ED Provider: Guillaume Gomez Discharge Problem: Ureterolithiasis, Prostate cancer metastatic to bone Patient Disposition: Admitted As Inpatient Discharge Instructions Interventions: ED Discharge Assessment Last Done: 06/24/23 11:03
[2023-06-24] MEDS ORDERED: POLYETHYLENE (MIRALAX) 17 GM PACK PO PRN (08:56)
[2023-06-24] MEDS ORDERED: ONDANSETRON INJ 2 MG/ML 2 ML VIAL IV PRN ×2 (08:56→12:56)
[2023-06-24] MEDS ORDERED: ACETAMINOPHEN 325 MG TAB PO PRN (08:56)
[2023-06-24] MEDS ORDERED: TRIAMCINOLONE ACET 0.1% CR 15 GM TUBE TOP PRN (09:06)
[2023-06-24] MEDS ORDERED: METHOCARBAMOL 750 MG TABLET PO PRN (09:06)
[2023-06-24] MEDS ORDERED: DICLOFENAC SOD 1% GEL 100 GM TUBE EXT PRN (09:06)
[2023-06-24] MEDS ORDERED: LORATADINE 10 MG TAB PO PRN (09:06)
[2023-06-24] MEDS ORDERED: NYSTATIN/TRIAMCIN CR 15 GM TUBE EXT PRN (09:06)
[2023-06-24] MEDS ORDERED: PROCHLORPERAZINE MALEATE 10 MG TAB PO PRN (09:06)
--- NOTE | 2023-06-24 09:10 | History & Physical Report ---
Date of Service June 24, 2023 Assessment & Plan (1) Ureterolithiasis: (2) Sleep disturbance: (3) Chronic pain: (4) Prostate cancer metastatic to bone: (5) Morbid obesity: (6) Urinary retention: (7) Hypertension: (8) Hyperlipidemia: Plan #Ureterolithiasis Pain control Tylenol Dilaudid Urology consult - appreciate recs Tamsulosin #Chronic Pain Duloxetine Fentanyl Oxycodone Methocarbamol #Prostate Cancer Metastatic Pain control as above Alfluzosin Abiraterone Prednisone #HTN Losartan #Sleep Disturbance Trazodone Admission and Anticipated Discharge Date Admission Date: I personally examined the patient and verified all garcia points of history and exam, discussed case, and agree with decision making with Dr Rubio pain persists - pt seen immediately post cysto and then again ~2hrs later - pain was better at revisit but was starting to return, nursing getting additional medications at the time i saw him vitals noted - initially uncomfortable, later nad but noted he was heading towards uncomfortable again ureterolithiasis w intractable pain complicated by obstructing prostate cancer - for transfer to [facility]. accepted, awaiting bed. History of Present Illness Primary Care Provider: Dheeraj Lin MD 67 year old male PMHx metastatic prostate cancer, kidney stones, chronic pain, HTN, HLD, sleep difficulty admitted for flank and back pain found to have b/l kidney stones. Pain began this morning described as 10/10 radiating from flank/back to groin. Associated with nausea and GI upset that has largely resolved by the time of admission. Currently receiving chemo for prostate cancer. Known to [facility] urology. Follows with palliative medicine for chronic pain management. Denies FAN, CP, N/V/D at this time. Endorses dysuria. Continues to have flank/spine/groin pain described as 5/10 after pain medication administered ED course: Received 1G mag sulfate, 1L NSS, fentanyl and Dilaudid CT abd/pelvis: 1. A 5 mm obstructing stone within the distal left ureter resulting in mild left hydronephrosis. 2. There are 2 stones within the lower pole the right kidney resulting in focal dilatation of the right lower pole calyx. This remains unchanged. 3. Focal lobular thickening within the left bladder base which may represent the enlarged prostate gland. However, follow-up urology consultation and possible cystoscopy recommended to exclude the possibility of a bladder lesion. Allergies Allergy/AdvReac Type Severity Reaction Status Date / Time pregabalin Allergy Mild GI symptoms Verified 06/17/23 07:13 azithromycin Allergy Unknown Rash Verified 06/17/23 07:13 ezetimibe [From Zetia] Allergy Unknown Verified 06/17/23 07:13 Awhlbvd-HJP-PfZ Reductase AdvReac Mild Pain Verified 06/17/23 07:13 Inhibitor [Dzcwmbs-Xus-Pxo Reductase Inhibitor] enalapril AdvReac Unknown Verified 06/17/23 07:13 erythromycin base AdvReac Unknown Verified 06/17/23 07:13 levaquin AdvReac Intermediate Dizziness Uncoded 06/17/23 07:13 Home Medications Medication Instructions Recorded Confirmed Type loratadine 10 mg tablet (Claritin) 10 mg PO DAILY PRN Allergy Symptoms 02/20/18 06/24/23 History betamethasone dipropionate 0.05 % 1 applic topical BID PRN skin 08/26/20 06/24/23 Rx topical cream irritation #15 grams diclofenac sodium 1 % topical gel 2 g topical QID PRN Pain 07/13/22 06/24/23 History (Voltaren) multivitamin 1 tab PO QAM 07/13/22 06/24/23 History prednisone 5 mg tablet 5 mg PO QAM 09/09/22 06/24/23 History prochlorperazine maleate 10 mg 10 mg PO UD PRN Nausea And Vomiting 09/09/22 06/24/23 History tablet oxycodone 10 mg tablet 10 mg PO Q4H 11/17/22 06/24/23 History abiraterone 250 mg tablet 1,000 mg PO QAM 11/25/22 06/24/23 History montelukast 10 mg tablet 10 mg PO PM 11/25/22 06/24/23 History (Singulair) fentanyl 75 mcg/hr transdermal 1 patch transdermal Q72H 01/07/23 06/24/23 History patch methocarbamol 750 mg tablet 750 mg PO BID PRN Muscle Spasm #60 01/12/23 06/24/23 Rx tabs alfuzosin 10 mg tablet,extended 10 mg PO DAILY #90 tabs 03/04/23 06/24/23 Rx release 24 hr (Uroxatral) trazodone 50 mg tablet 50 - 100 mg (1 - 2 x 50 mg) PO HS 11/13/23 02/02/24 Rx #60 tabs duloxetine 30 mg capsule,delayed 30 mg PO QAM #90 caps 04/21/23 06/24/23 Rx release losartan 50 mg tablet 50 mg PO QAM #90 tabs 06/12/23 06/24/23 Rx naloxone 4 mg/actuation nasal spray 4 mg intranasal Q2M PRN as 06/17/23 06/24/23 Rx directed #2 ea nystatin-triamcinolone 100,000 1 applic topical BID PRN Rash 06/24/23 06/24/23 History unit/g-0.1 % topical cream triamcinolone acetonide 0.1 % 1 applic topical BID PRN Rash 06/24/23 06/24/23 History topical cream Past Med/Surg History Medical History History of COVID-19 11/2021 Eczema Left breast lump First reported present 08/2019 Nephrolithiasis Chronic scapular pain Obesity Pelvic pain in male Cervical postlaminectomy syndrome History of pelvic fracture Prostate cancer Dx , s/p surgery, radiation, current chemo (+ prednisone 5mg daily) Hypertension Hyperlipidemia Arthritis Surgical History History of surgery Procedure was aborted in middle of an attempted prostatectomy due to previous pelvis surgery complication, radiation to treat cancer History of laminectomy cervical > restricted movement side to side slightly History of pelvic surgery several years ago History of surgery on wrist right History of nasal sinusotomy History of removal of cyst right wrist History of prostate biopsy malignant Hx of vasectomy History of lithotripsy History of bladder repair surgery repair of bladder/urethra History of colonoscopy History of tooth extraction wisdom teeth S/P cervical spinal fusion x2 (2000, 2007) ACDF C5-6 and posterior fusion T1-2 History of tonsillectomy and adenoidectomy + UPPP + soft palate "tightening" (done d/t recurrent tonsillitis per patient) History of orchiectomy, bilateral 09/14/16: LMA#5 at [facility] Family History Mother , 98yo Breast cancer Father , 68yo Pulmonary embolism Following knee replacement Sister No problems noted. Sister Diabetes Sister Dementia Son No problems noted. Son No problems noted. 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 Children do You have: 2 Other Information That Helps Us Care for You: No Feels Safe at Home: Yes Safety Concerns: Feels Safe At This Time Diet: regular caffeine: Yes (3 cups/day) during the past year weight has: remained stable Dental Care, Regularly: Yes Seatbelt Use: always Sunscreen Use: No Assistive Devices: Cane and Walker Review of Systems Review of Systems: reviewed, per HPI Physical Exam Physical Exam: Constitutional: appears uncomfortable, no acute distress HEENT: NCAT, no conjunctival injection CV: regular rhythm, no murmur appreciated, extremities well-perfused, no LE edema Resp: CTABL, no wheezes/rales/rhonchi appreciated, no increased work of breathing GI: soft, nondistended, nontender, BS normoactive MSK: no gross deformities appreciated, TTP Skin: warm, dry, no rash appreciated Neuro: alert, oriented, no focal neurologic deficit appreciated Results & Data Results & Data Vital Signs (Past 12 Hours) Vital Signs Temp Pulse Pulse Resp BP BP Pulse Ox 06/24/23 08:42 72 16 162/83 H 98 06/24/23 08:14 63 06/24/23 07:04 70 20 184/95 H 94 06/24/23 05:16 36.6 C 103 H 20 178/90 H 98 O2 Del Method 06/24/23 08:42 Room Air 06/24/23 08:14 06/24/23 07:04 Room Air 06/24/23 05:16 Room Air Code Status & VTE Plan VTE Prophylaxis Plan VTE Prophylaxis will be ordered: Yes
[2023-06-24] MEDS ORDERED: TRIAMCINOLONE ACET 0.5% CR 15 GM TUBE EXT PRN (09:50)
--- NOTE | 2023-06-24 10:15 | Urology Consultation ---
Date of Consultation June 24, 2023 Assessment & Plan (1) Ureterolithiasis: 67 yo/M admitted for left flank pain secondary to an obstructing 5 mm left distal ureteral calculus with hydronephrosis. Patient is afebrile and hemodynamically stable Labscreatinine 1.28, WBC 8.42, hemoglobin 14.1 Urinalysis showed 1+ leukocyte esterase, >30 WBC, >30 RBC, negative for bacteria Urine culture pending CT A/P reviewed and discussed Discussed options for stone management including trial of passage versus surg ical intervention with left ureteral stent placement acutely Discussed ureteral stents in detail as well as possible need to treat stone at a later date depending on findings Discussed he has a pretty good probability of passing stone given size and location However, he continues to have significant pain After discussion, he wishes to proceed with left ureteral stent placement today Given intractable pain, will proceed to OR for cystoscopy, retrograde pyelogram and left ureteral stent placement Risks and benefits of procedure to be reviewed with patient by Dr. Dorado Keep NPO for procedure Will treat with Ancef preoperatively Continue with supportive care and antibiotics History of urinary retentionrecommend monitor voiding with bladder scan as needed will follow Attending note: Patient independently assessed, examined, interviewed, and evaluated. Agree with note as above. Patient's vitals and labs were all reviewed. Pertinent values in the HPI and plan section. Imaging was reviewed interpreted by myself. Agree with read. Vitals were reviewed. Discussed findings extensively with patient and family. Reviewed with nurse practitioner as well as consulting physicians/team. Patient's complicated medical and surgical history was reviewed and summarized above. Patient's surgical, medical, social, and family history were all reviewed with pertinent values as above. Discussed patient's current diagnosis as well as concerns and issues. Reviewed different options moving forward. Discussed potential risks and benefits as well as possible options and concerns. Reviewed potential surgical options and interventions. Discussed potential issues and concerns related to intervention. Risk and benefits were discussed extensively with patient and any available family. Discussed potential risks related to anesthesia. Discussed risks of bleeding infection and injury. Imaging independently reviewed, assessed and interpreted. Obstructing distal left stone. Large right renal stone. Risks and benefits discussed at length for procedure. These include bleeding, infection, injury to surrounding tissues or organs, and risks associated with anesthesia. Patient states understanding and agrees to proceed. Will sign consent and schedule. Plan for cystoscopy with possible left stent. Possible ureteroscopy, laser lithotripsy, and basket extraction. History of Present Illness History of Present Illness This is a 67-year-old male with past medical history of prostate cancer metastatic to bone, urinary retention and nephrolithiasis who presented to the emergency department today with sudden onset of left flank pain with associated nausea and vomiting. On arrival, he was afebrile, hypertensive but otherwise hemodynamically stable. Lab work showed creatinine 1.28, WBC 8.42, hemoglobin 14.1. Urinalysis showed 2+ protein, 3+ blood, 1+ leukocyte esterase, >30 WBC, >30 RBC, negative for bacteria. CT abdomen pelvis notable for a 5 mm obstructing stone within the distal left ureter with mild left hydronephrosis; 2 stones within the lower pole of the right kidney with focal dilatation of the right lower pole calyx, unchanged. Focal lobular thickening within the left bladder base. ED course included IV fluids, hydromorphone and fentanyl. He was admitted to the medicine service for pain management. Urology is consulted for left ureteral stone. Patient is known to our service for history of metastatic prostate cancer, urinary retention and urethral stricture. Patient seen and examined in the emergency department. Family present. Patient is awake, alert and sitting up in a chair upon my arrival. He appears uncomfortable. He is voiding spontaneously. He reports urinary frequency and urgency. No dysuria. He noted hematuria starting this morning. He reports pain started suddenly overnight and has been severe. He reports nausea and vomiting prior to arrival, but currently improved. He has not eaten since last night. He had a drink of water at 4 AM but vomited afterward. Denies chest pain or shortness of breath. Reports history of stones. He has previously passed stones spontaneously. Also notes history of surgical intervention with ureteroscopy and stent placement several years ago. Allergies Allergy/AdvReac Type Severity Reaction Status Date / Time pregabalin Allergy Mild GI symptoms Verified 06/17/23 07:13 azithromycin Allergy Unknown Rash Verified 06/17/23 07:13 ezetimibe [From Zetia] Allergy Unknown Verified 06/17/23 07:13 Etfeyzg-TQP-ViP Reductase AdvReac Mild Pain Verified 06/17/23 07:13 Inhibitor [Kpuwkxi-Yea-Ttg Reductase Inhibitor] enalapril AdvReac Unknown Verified 06/17/23 07:13 erythromycin base AdvReac Unknown Verified 06/17/23 07:13 levaquin AdvReac Intermediate Dizziness Uncoded 06/17/23 07:13 Home Medications Medication Instructions Recorded Confirmed Type loratadine 10 mg tablet (Claritin) 10 mg PO DAILY PRN Allergy Symptoms 02/20/18 06/24/23 History betamethasone dipropionate 0.05 % 1 applic topical BID PRN skin 08/26/20 06/24/23 Rx topical cream irritation #15 grams diclofenac sodium 1 % topical gel 2 g topical QID PRN Pain 07/13/22 06/24/23 History (Voltaren) multivitamin 1 tab PO QAM 07/13/22 06/24/23 History prednisone 5 mg tablet 5 mg PO QAM 09/09/22 06/24/23 History prochlorperazine maleate 10 mg 10 mg PO UD PRN Nausea And Vomiting 09/09/22 06/24/23 History tablet oxycodone 10 mg tablet 10 mg PO Q4H 11/17/22 06/24/23 History abiraterone 250 mg tablet 1,000 mg PO QAM 11/25/22 06/24/23 History montelukast 10 mg tablet 10 mg PO PM 11/25/22 06/24/23 History (Singulair) fentanyl 75 mcg/hr transdermal 1 patch transdermal Q72H 01/07/23 06/24/23 History patch methocarbamol 750 mg tablet 750 mg PO BID PRN Muscle Spasm #60 01/12/23 06/24/23 Rx tabs alfuzosin 10 mg tablet,extended 10 mg PO DAILY #90 tabs 03/04/23 06/24/23 Rx release 24 hr (Uroxatral) trazodone 50 mg tablet 50 - 100 mg (1 - 2 x 50 mg) PO HS 04/04/23 06/24/23 Rx #60 tabs duloxetine 30 mg capsule,delayed 30 mg PO QAM #90 caps 04/21/23 06/24/23 Rx release losartan 50 mg tablet 50 mg PO QAM #90 tabs 06/12/23 06/24/23 Rx naloxone 4 mg/actuation nasal spray 4 mg intranasal Q2M PRN as 06/17/23 06/24/23 Rx directed #2 ea nystatin-triamcinolone 100,000 1 applic topical BID PRN Rash 06/24/23 06/24/23 History unit/g-0.1 % topical cream triamcinolone acetonide 0.1 % 1 applic topical BID PRN Rash 06/24/23 06/24/23 History topical cream Patient History Medical History History of COVID-19 11/2021 Eczema Left breast lump First reported present 08/2019 Nephrolithiasis Chronic scapular pain Obesity Pelvic pain in male Cervical postlaminectomy syndrome History of pelvic fracture Prostate cancer Dx , s/p surgery, radiation, current chemo (+ prednisone 5mg daily) Hypertension Hyperlipidemia Arthritis Surgical History History of surgery Procedure was aborted in middle of an attempted prostatectomy due to previous pelvis surgery complication, radiation to treat cancer History of laminectomy cervical > restricted movement side to side slightly History of pelvic surgery several years ago History of surgery on wrist right History of nasal sinusotomy History of removal of cyst right wrist History of prostate biopsy malignant Hx of vasectomy History of lithotripsy History of bladder repair surgery repair of bladder/urethra History of colonoscopy History of tooth extraction wisdom teeth S/P cervical spinal fusion x2 (2000, 2007) ACDF C5-6 and posterior fusion T1-2 History of tonsillectomy and adenoidectomy + UPPP + soft palate "tightening" (done d/t recurrent tonsillitis per patient) History of orchiectomy, bilateral 09/14/16: LMA#5 at [facility] Family History Mother , 98yo Breast cancer Father , 68yo Pulmonary embolism Following knee replacement Sister No problems noted. Sister Diabetes Sister Dementia Son No problems noted. Son No problems noted. 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 Feels Safe at Home: Yes Diet: regular caffeine: Yes (3 cups/day) during the past year weight has: remained stable Dental Care, Regularly: Yes Seatbelt Use: always Sunscreen Use: No Assistive Devices: Cane and Glasses Review of Systems Review of Systems: All systems reviewed & are unremarkable except as noted in HPI & below Physical Exam Constitutional: well developed, well nourished and + obese; no acute distress and + uncomfortable Eyes: no scleral abnormality Respiratory: normal respiratory effort; no respiratory distress and no labored breathing Gastrointestinal (Abdomen): Inspection/Auscultation: abdomen normal to inspection Musculoskeletal: Head/Neck/Chest: normocephalic Neurologic: moves all extremities and awake Psychiatric: Orientation: alert and oriented x 3 Genitourinary: Mild tenderness to palpation over left flank Results & Data Vital Signs (Past 12 Hours) Vital Signs Temp Pulse Pulse Resp BP BP Pulse Ox 06/24/23 09:57 77 20 179/93 H 94 06/24/23 09:31 77 16 162/83 H 94 06/24/23 08:42 72 16 162/83 H 98 06/24/23 08:14 63 06/24/23 07:04 70 20 184/95 H 94 06/24/23 05:16 36.6 C 103 H 20 178/90 H 98 O2 Del Method 06/24/23 09:57 Room Air 06/24/23 09:31 06/24/23 08:42 Room Air 06/24/23 08:14 06/24/23 07:04 Room Air 06/24/23 05:16 Room Air PG Care Time/CCT Total # of Minutes Spent Total Time Spent with Patient: Total time spent is greater than 50% in coordination of care (as documented) at patient's floor/unit and/or counseling patient: Coding Level of Care Code 11492 INT INP/OBS CARE 2/55MIN Diagnoses Ureterolithiasis N20.1
[2023-06-24] MEDS: LACTATED RINGER'S 1,000 ML IV SCH (12:37)
[2023-06-24] MEDS ORDERED: ONDANSETRON INJ 2 MG/ML 2 ML VIAL ONE (12:38)
[2023-06-24] MEDS ORDERED: PROPOFOL IV EMULSION 10 MG/ML 20 ML VIAL IV ONE (12:38)
[2023-06-24] MEDS ORDERED: LIDOCAINE 2% 2 ML VIAL/AMP(20MG/ML) INFIL ONE (12:38)
[2023-06-24] MEDS ORDERED: fentaNYL citrate PF 100 MCG/2 ML VIAL ONE ×2 (12:39→12:58)
[2023-06-24] MEDS: ceFAZolin 2000MG 2,000 MG/15 ML SYR IV SCH (12:53)
[2023-06-24] MEDS ORDERED: ePHEDrine sulfate 50 MG/ML AMP IV PRN (12:56)
[2023-06-24] MEDS ORDERED: ATROPINE SULFATE 0.1 MG/ML 10ML SYR IV PRN (12:56)
--- NOTE | 2023-06-24 12:56 | Anesthesiology Consultation ---
Date of Service June 24, 2023 Assessment & Plan Chart Review Chart Review: Acceptable Risk for Surgery and Patient NOT seen in Pre Admission Testing Consults Requested none ASA ASA3 Proposed Anesthesia Anesthesia Type: MAC Risk / Benefits Reviewed With: PT / POA / Parent / Guardian, Accepts Plan and Informed Consent Obtained History Surgery Operation Date: 06/24/23 07:00 Proposed Procedures p Cystoscopy, Left Ureteral Stent Placement - Bin Dorado, DO Height/Weight Height: 5 ft 7 in Weight: 113.5 kg Allergies Allergy/AdvReac Type Severity Reaction Status Date / Time pregabalin Allergy Mild GI symptoms Verified 06/17/23 07:13 azithromycin Allergy Unknown Rash Verified 06/17/23 07:13 ezetimibe [From Zetia] Allergy Unknown Verified 06/17/23 07:13 Wnmcupu-WOA-VpK Reductase AdvReac Mild Pain Verified 06/17/23 07:13 Inhibitor [Jolhelr-Sdn-Wlv Reductase Inhibitor] enalapril AdvReac Unknown Verified 06/17/23 07:13 erythromycin base AdvReac Unknown Verified 06/17/23 07:13 levaquin AdvReac Intermediate Dizziness Uncoded 06/17/23 07:13 Medications Home Medications Medication Instructions Recorded Confirmed Last Taken loratadine 10 mg tablet (Claritin) 10 mg PO DAILY PRN Allergy Symptoms 02/20/18 06/24/23 05/08/18 12:00 betamethasone dipropionate 0.05 % 1 applic topical BID PRN skin 08/26/20 06/24/23 Unknown topical cream irritation #15 grams diclofenac sodium 1 % topical gel 2 g topical QID PRN Pain 07/13/22 06/24/23 Unknown (Voltaren) multivitamin 1 tab PO QAM 07/13/22 06/24/23 06/23/23 prednisone 5 mg tablet 5 mg PO QAM 09/09/22 06/24/23 12/12/22 08:00 prochlorperazine maleate 10 mg 10 mg PO UD PRN Nausea And Vomiting 09/09/22 06/24/23 Unknown tablet oxycodone 10 mg tablet 10 mg PO Q4H 11/17/22 06/24/23 12/12/22 23:30 abiraterone 250 mg tablet 1,000 mg PO QAM 11/25/22 06/24/23 06/23/23 montelukast 10 mg tablet 10 mg PO PM 11/25/22 06/24/23 06/23/23 (Singulair) fentanyl 75 mcg/hr transdermal 1 patch transdermal Q72H 01/07/23 06/24/23 06/22/23 patch methocarbamol 750 mg tablet 750 mg PO BID PRN Muscle Spasm #60 01/12/23 06/24/23 Unknown tabs alfuzosin 10 mg tablet,extended 10 mg PO DAILY #90 tabs 03/04/23 06/24/23 06/23/23 release 24 hr (Uroxatral) trazodone 50 mg tablet 50 - 100 mg (1 - 2 x 50 mg) PO HS 04/04/23 06/24/23 06/23/23 #60 tabs duloxetine 30 mg capsule,delayed 30 mg PO QAM #90 caps 04/21/23 06/24/23 06/23/23 release losartan 50 mg tablet 50 mg PO QAM #90 tabs 06/12/23 06/24/23 06/23/23 naloxone 4 mg/actuation nasal spray 4 mg intranasal Q2M PRN as 06/17/23 06/24/23 Unknown directed #2 ea nystatin-triamcinolone 100,000 1 applic topical BID PRN Rash 06/24/23 06/24/23 Unknown unit/g-0.1 % topical cream triamcinolone acetonide 0.1 % 1 applic topical BID PRN Rash 06/24/23 06/24/23 Unknown topical cream Active Medications Generic Name Dose Route Start Last Admin Trade Name Freq PRN Reason Stop Dose Admin Hydromorphone HCl 1 mg 06/24/23 09:12 06/24/23 10:24 Hydromorphone Inj 0.5 Mg/0.5 Ml Syr IV 07/08/23 06:48 1 mg Q30M PRN Administration Pain Lactated Ringer's 1,000 mls @ 15 mls/hr 06/24/23 12:45 06/24/23 12:53 Lr IV 07/24/23 12:44 Infused .Q24H LISSET Infusion NPO Date Last Intake of Fluids: 06/24/23 Time Last Intake of Fluids: 04:00 Last Intake of Fluids Comment: small amount water, vomited after Date Last Intake of Solids: 06/23/23 Time Last Intake of Solids: 18:00 Past Medical History Medical History History of COVID-19 11/2021 Eczema Left breast lump First reported present 08/2019 Nephrolithiasis Chronic scapular pain Obesity Pelvic pain in male Cervical postlaminectomy syndrome History of pelvic fracture Prostate cancer Dx , s/p surgery, radiation, current chemo (+ prednisone 5mg daily) Hypertension Hyperlipidemia Arthritis Exercise / Class Metabolic Activity II 4-5 Yardwork/Stairs/Walk up hill Past Family History Family History Mother , 98yo Breast cancer Father , 68yo Pulmonary embolism Following knee replacement Sister No problems noted. Sister Diabetes Sister Dementia Son No problems noted. Son No problems noted. Past Surgical History Surgical History History of surgery Procedure was aborted in middle of an attempted prostatectomy due to previous pelvis surgery complication, radiation to treat cancer History of laminectomy cervical > restricted movement side to side slightly History of pelvic surgery several years ago History of surgery on wrist right History of nasal sinusotomy History of removal of cyst right wrist History of prostate biopsy malignant Hx of vasectomy History of lithotripsy History of bladder repair surgery repair of bladder/urethra History of colonoscopy History of tooth extraction wisdom teeth S/P cervical spinal fusion x2 (2000, 2007) ACDF C5-6 and posterior fusion T1-2 History of tonsillectomy and adenoidectomy + UPPP + soft palate "tightening" (done d/t recurrent tonsillitis per patient) History of orchiectomy, bilateral 09/14/16: LMA#5 at [facility] Past Anesthesia History No Hx of Anesthesia Complications and No Family Hx of Anesthesia Complications History of PONV No Hx of PONV and No Hx of Motion Sickness Social History Smoking Status: Never smoker Do You Dip or Chew Tobacco: No Hx Alcohol Use: No Alcohol type: wine alcohol intake frequency: holidays/special occasions only Hx Substance Use: No substance use type: does not use Physical Exam Vital Signs Last Vital Signs Temp 37.5 C 06/24/23 12:18 Pulse 83 06/24/23 12:18 Resp 22 06/24/23 12:18 BP 176/78 H 06/24/23 12:18 Pulse Ox 98 06/24/23 12:18 O2 Del Method Room Air 06/24/23 12:18 Constitutional + obese ENMT Mouth: no dentition abnormality Thyromental Distance: > or= 3.5 Finger Breadths Mallampati Class: II Neck normal visual inspection Respiratory normal respiratory effort Auscultation: lungs clear to auscultation bilaterally Cardiovascular Rate/Rhythm: regular rate and regular rhythm Psychiatric Orientation: alert Testing Laboratory Results 06/24/23 05:47 06/24/23 05:47 Urine Color [place] 06/24/23 05:49 Urine Appearance Turbid (Clear) A 06/24/23 05:49 Urine pH 5.0 (4.5-7.5) 06/24/23 05:49 Ur Specific [place] 1.019 (1.000-1.030) 06/24/23 05:49 Urine Protein 2+ (Negative) H 06/24/23 05:49 Urine Glucose (UA) Negative (Negative) 06/24/23 05:49 Urine Ketones Negative (Negative) 06/24/23 05:49 Urine Nitrite Negative (Negative) 06/24/23 05:49 Ur Leukocyte Esterase 1+ (Negative) H 06/24/23 05:49 Urine WBC (Auto) >30 /hpf (0-5) H 06/24/23 05:49 Urine RBC (Auto) >30 /hpf (0-4) H 06/24/23 05:49 U Hyaline Cast (Auto) 1-5 /lpf (0-5) 06/24/23 05:49 U Epithel Cells (Auto) 0-5 /lpf (0-5) 06/24/23 05:49 Urine Bacteria (Auto) Negative (Negative) 06/24/23 05:49
[2023-06-24] MEDS ORDERED: MIDAZOLAM HCL 1 MG/ML 2ML VIAL ONE (12:57)
[2023-06-24] MEDS: DIATRIZOATE MEGLUMINE 30% 100ML VIAL INSTIL ONE (14:06)
--- NOTE | 2023-06-24 14:15 | Operative Report ---
PG Post Operative Report Pre & Post Diagnosis Operation Date: 06/24/23 07:00 Pre-Op Diagnosis: Ureterolithiasis, Prostate Cancer Post-Op Diagnosis: Ureterolithiasis, Prostate Cancer. I identified the patient and participated in the time-out.: Yes Procedure Operation Date: 06/24/23 07:00 Actual Procedures p Cystoscopy with urethral dilation, biopsy of bladder neck mass, and cystogram - Bin Dorado DO Surgeon Bin Dorado, II, DO Associate Teacher None Estimated Blood Loss 5 Findings Consistent with Post-Op Diagnosis Significant scarring and invasion within the prostatic urethra and bladder neck. Lesions throughout the bladder and trigone. Significant edematous tissues. Stricture and obstruction through the prostatic urethra. Fixed, immobile pelvis. Numerous attempts to cannulate and advance wire failed to discover the ureter. Specimens Prostatic Mass Biopsy Drains 22 Fr [place] Tip Catheter. Anesthesia Type MAC Complications none Disposition Disposition: Recovery Room Indications Patient with obstruction. Risks and benefits discussed at length. Description of Procedure Patient was consented and brought back to the operating room. Patient was placed under anesthesia in the supine position and moved to the dorsal lithotomy position. Patient was prepped and draped in the regular sterile fashion. A time out was completed. A 30degree Cystoscope was placed into the urethra and advanced. Within the prostatic urethra a significant scarring and mass like tissue was noted. Dilation was necessary to advance the scope. At the bladder neck there were numerous areas of likely tumor invasion and projection into the bladder. The bladder neck mass at approx the 6 o'clock position was biopsied and removed to allow the scope to access the bladder. The scope entered the bladder and the entire bladder was examined. Throughout the bladder lesions were noted. The bladder base and trigone had numerous edematous lesions and significant friable tissue. Numerous attempts to cannulate and advance a wire were attempted. The bladder volume was discovered to be severely reduced. A cystogram was completed. No reflux of urine was noted on either the left or the right. The bladder capacity was extremely limited. Minimal bleeding was noted from the prostatic urethra and bladder neck. After numerous attempts to find the ureteral orifice and advance the wire, it was determined that due to likely tumor invasion the access retrograde would likely not be possible. A wire was placed into the bladder. The bladder was filled with contrast infused saline. The scope was removed. Over the wire, a 22 Fr ho-chunk tip catheter was placed. It was confirmed with f luoroscopy. The patient was cleaned, aroused from anesthesia, and transferred to the pacu in stable condition having tolerated the procedure well with no complications. I was present and participated in all aspects of the procedure. The patient will be monitored in the PACU until transferred. Will likely need percutaneous drainage and possibly antegrade management of stone. Unable to access retrograde. Will discuss with Hospitalist team. Maintain catheter for drainage. I attest to the content of the Intraoperative Record and any orders documented therein. Any exceptions are noted below.
[2023-06-24] MEDS: fentaNYL citrate PF 100 MCG/2 ML VIAL IV PRN (14:27)
--- NOTE | 2023-06-24 14:43 | Fluoroscopy Report ---
FL retrograde includes kub CLINICAL HISTORY: LEFT CYSTO STENT COMPARISON STUDY: None. FLUOROSCOPY TIME: 21 seconds FLUOROSCOPY IMAGES: 3 Ka,r: 12.9 mGy FINDINGS: Retrograde opacification of the bladder. The ureteral orifice was unable to be accessed by the radiologist. IMPRESSION: Fluoroscopic assistance as above. ACT 112: Negative or not required by law. Electronically signed by: Stanley Lewis M.D. 06/24/2023 2:41 PM
[2023-06-24] MEDS: HYDROmorphone INJ 0.5 MG/0.5 ML SYR IV STA (15:02)
[2023-06-24] MEDS: HYDROmorphone INJ 1 MG/ML SYRINGE ONE (15:19)
--- NOTE | 2023-06-24 15:39 | Anesthesiology Progress Note ---
Date of Service June 24, 2023 Anesthesia Post Procedure Vital Signs Vital Signs: Temp Pulse Pulse Pulse Resp BP BP 06/24/23 15:30 77 20 116/84 06/24/23 15:20 36.7 C 81 21 134/70 06/24/23 15:10 78 21 138/80 06/24/23 15:00 75 22 125/58 L 06/24/23 14:50 74 18 128/57 L 06/24/23 14:40 71 21 148/70 H 06/24/23 14:30 77 24 137/64 06/24/23 14:23 37 C 80 17 133/72 06/24/23 12:18 37.5 C 83 22 176/78 H 06/24/23 11:29 36.9 C 68 18 159/75 H 06/24/23 09:57 77 20 179/93 H 06/24/23 09:31 77 16 162/83 H 06/24/23 08:42 72 16 162/83 H 06/24/23 08:14 63 06/24/23 07:04 70 20 184/95 H 06/24/23 05:16 36.6 C 103 H 20 178/90 H Pulse Ox O2 Del Method O2 Flow Rate 06/24/23 15:30 93 Room Air 06/24/23 15:20 97 Room Air 06/24/23 15:10 96 Room Air 06/24/23 15:00 94 Room Air 06/24/23 14:50 98 Room Air 06/24/23 14:40 99 Oxymask 5 06/24/23 14:30 98 Oxymask 5 06/24/23 14:23 99 Oxymask 5 06/24/23 12:18 98 Room Air 06/24/23 11:29 97 Room Air 06/24/23 09:57 94 Room Air 06/24/23 09:31 94 06/24/23 08:42 98 Room Air 06/24/23 08:14 06/24/23 07:04 94 Room Air 06/24/23 05:16 98 Room Air Pain Intensity Abdomen: Pain Intensity: 10 Left Flank: Pain Intensity: 10 Transfer of Care Handoff Completed per policy Notes Mental Status: alert / awake / arousable Patient Amnestic to Procedure: Yes Nausea / Vomiting: adequately controlled Pain: adequately controlled Airway Patency, RR, SpO2: stable & adequate BP & HR: stable & adequate Hydration State: stable & adequate Anesthetic Complications: no major complications apparent
[2023-06-24] MEDS: ENOXAPARIN INJ 40 MG/0.4 ML SYR SQ SCH (17:21)
[2023-06-24] MEDS: LOSARTAN POTASSIUM 50 MG TAB PO SCH (17:31)
[2023-06-24] MEDS: TAMSULOSIN HCL 0.4 MG CAP PO SCH (17:31)
[2023-06-24] MEDS: predniSONE 5 MG TAB PO SCH (17:32)
[2023-06-24] MEDS: DULoxetine HCL 30 MG CAP PO SCH (17:32)
[2023-06-24] MEDS: CHECK fentaNYL PATCH PLACEMENT SCH (17:32)
--- NOTE | 2023-06-24 18:06 | Billing Data ---
Date of Service June 24, 2023 Coding Level of Care Code INP/OBS EV SAME DAY LV 3,85MIN
--- NOTE | 2023-06-24 18:09 | Discharge Summary ---
Date of Service June 24, 2023 Admission HPI Per Admitting Provider 67 year old male PMHx metastatic prostate cancer, kidney stones, chronic pain, HTN, HLD, sleep difficulty admitted for flank and back pain found to have b/l kidney stones. Pain began this morning described as 10/10 radiating from flank/back to groin. Associated with nausea and GI upset that has largely resolved by the time of admission. Currently receiving chemo for prostate cancer. [place] [facility] [place]. Follows with palliative medicine for chronic pain management. Denies FAN, CP, N/V/D at this time. Endorses dysuria. Continues to have flank/spine/groin pain described as 5/10 after pain medication administered ED course: Received 1G mag sulfate, 1L NSS, fentanyl and Dilaudid CT abd/pelvis: 1. A 5 mm obstructing stone within the distal left ureter resulting in mild left hydronephrosis. 2. There are 2 stones within the lower pole the right kidney resulting in focal dilatation of the right lower pole calyx. This remains unchanged. 3. Focal lobular thickening within the left bladder base which may represent the enlarged prostate gland. However, follow-up urology consultation and possible cystoscopy recommended to exclude the possibility of a bladder lesion. Principal Diagnosis ureterolithiasis, intractable pain - complicated by obstructing prostate cancer Discharge Exam see H&P. no distress when i saw him most recently Discharge Data Allergies Allergy/AdvReac Type Severity Reaction Status Date / Time pregabalin Allergy Mild GI symptoms Verified 06/17/23 07:13 azithromycin Allergy Unknown Rash Verified 06/17/23 07:13 ezetimibe [From Zetia] Allergy Unknown Verified 06/17/23 07:13 Tsxrekd-JZO-GuT Reductase AdvReac Mild Pain Verified 06/17/23 07:13 Inhibitor [Fyenunl-Fdx-Vxj Reductase Inhibitor] enalapril AdvReac Unknown Verified 06/17/23 07:13 erythromycin base AdvReac Unknown Verified 06/17/23 07:13 levaquin AdvReac Intermediate Dizziness Uncoded 06/17/23 07:13 Consultations 06/24/23 08:56 Consult Urology Routine 06/24/23 10:20 ED Decision to Admit Stat 06/24/23 17:12 Burn CD for patient Stat Procedures Performed Operation Date: 06/24/23 07:00 Actual Procedures p Cystoscopy, urethral dilation, cystogram - Bin Dorado DO Ordered Studies 06/24/23 05:15 CT Abdomen and Pelvis [CT abd pelvis wo con] Stat 06/24/23 12:00 FL retrograde includes kub Routine Hospital Course (1) Ureterolithiasis: complicated by obstructing prostate cancer -no ability for nephrostomy tubes here -continue pain control until eval and management at [facility] -for transfer once bed available (all paperwork completed, just awaiting bed confirmation at the time of this documentation) Total Time Total Time Spent Total Time Spent (In Minutes): undefined given that all care (admission, post op, transfer care, and discharge care) all took place as one continuum on the same date Discharge Plan Discharge Items Patient Disposition: Transfer Acute Care Hospital Reason For Visit: KIDNEY STONE Discharge Diagnosis: ureterolithiasis, unable to pass stent Activity: Resume your previous activity Non-emergency contact: Primary Care Provider, Specialist and Urologist Call non-emergency contact if: you have any medication questions, your symptoms worsen and you have a fever Follow-up/Referrals: Dheeraj Lin MD [Primary Care Provider] - Diet: Regular Addtl Attending Provider Instructions: per [facility] *of note for receiving facility - below med rec represents listed home medications; for inpatient medications please refer to attached MAR Pending Studies at Discharge: Yes (urine culture pending, but low suspicion for infection) Stand-Alone Forms: [facility] Skilled Items Patient informed of condition?: Yes DNR: Yes Discharge Level of Care: Other Communicable Disease: No Discharge Prognosis: Other Lines: Peripheral IV Urinary Catheter: Yes Medications and DC Order Prescriptions: Continued loratadine [Claritin] 10 mg tablet 10 mg PO DAILY PRN (Reason: Allergy Symptoms) diclofenac sodium [Voltaren] 1 % gel 2 g TOP QID PRN (Reason: Pain) Rx Instructions: apply to affected joint /breast multivitamin Tablet 1 tab PO QAM fentanyl 75 mcg/hr patch 72 hour 1 patch transdermal Q72H methocarbamol 750 mg tablet 750 mg PO BID PRN (Reason: Muscle Spasm) Qty: 60 5RF alfuzosin [Uroxatral] 10 mg tablet extended release 24 hr 10 mg PO DAILY Qty: 90 3RF Rx Instructions: administer after the same meal each day trazodone 50 mg tablet 50 - 100 mg PO HS Qty: 60 5RF duloxetine 30 mg capsule,delayed release(DR/EC) 30 mg PO QAM Qty: 90 3RF losartan 50 mg tablet 50 mg PO QAM Qty: 90 1RF betamethasone dipropionate 0.05 % cream 1 applic topical BID PRN (Reason: skin irritation) Qty: 15 0RF naloxone 4 mg/actuation spray,non-aerosol 4 mg intranasal Q2M PRN (Reason: as directed) Qty: 2 0RF Rx Instructions: spray 1 dose into ONE nostril; alternate nostrils w each dose until help arrives prochlorperazine maleate 10 mg tablet 10 mg PO UD PRN (Reason: Nausea And Vomiting) prednisone 5 mg tablet 5 mg PO QAM oxycodone 10 mg tablet 10 mg PO Q4H montelukast [Singulair] 10 mg tablet 10 mg PO PM abiraterone 250 mg tablet 1,000 mg PO QAM triamcinolone acetonide 0.1 % cream 1 applic TOPICAL BID PRN (Reason: Rash) Rx Instructions: APPLY SPARINGLY TO AFFECTED AREA nystatin-triamcinolone 100,000-0.1 unit/g-% cream 1 applic topical BID PRN (Reason: Rash) Rx Instructions: Apply small amount to affected area BID x2 weeks, then PRN. Discharge Orders: Discharge Order (Routine); Ordered 06/24/23 Ordered By: Vincenzo Cast Admission Data Admit Date/Time: 06/24/23 08:56 Attending Provider: Vincenzo Cast Admit Provider: Nathan Rubio Primary Care Provider: Dheeraj Lin V. Other Providers: Vincenzo Cast; Bin Dorado Coding Level of Care Code None Diagnoses Ureterolithiasis N20.1 Comment same day admit and dc
[2023-06-24] MEDS: traZODone HCL 100 MG TAB PO SCH (19:46)
[2023-06-24] MEDS: MONTELUKAST SODIUM 10 MG TABLET PO SCH (19:46)
[2023-06-24] MEDS: HYDROmorphone INJ 1 MG/ML SYRINGE IV PRN (23:18)
[2023-06-25] MEDS: fentaNYL 75 MCG/HR TDSY TD SCH (08:49)
[2023-06-25] MEDS: MULTIVITAMIN TAB PO SCH (08:50)
[2023-06-25] MEDS: HYDROmorphone INJ 1 MG/ML SYRINGE IV STA (10:04)
--- NOTE | 2023-06-25 10:37 | Urology Progress Note ---
Date of Service June 25, 2023 Assessment & Plan (1) Ureterolithiasis: (2) Elevated PSA: (3) Urinary incontinence: (4) Prostate cancer metastatic to bone: (5) Neuropathic pain: Plan Discussion today about different options. Patient postop day 1 status post biopsy of bladder neck with urethral dilation and catheter placement. Multiple attempts at cannulation and access to the left ureter had failed due to possible scarring versus tumor invasion from prostate cancer. Have discussed with the hospitalist extensively. Discussed extensively with patient today different options. Discussed potential referral to a tertiary center for interventional radiology for nephrostomy tube placement. Does have a very large stone on the right side. Has approximately 5 mm stone in the distal ureter. Some of the pain and issues have decreased overnight. He had a sudden relief of pain in the evening but has had now new bouts of pain and flank pain and discomfort. Has been tolerating catheter without major issue. A sample was taken of possible tumor from the bladder neck. The urethra required extensive dilation within the prostatic urethra and bulbar urethra. There was nodules throughout the bladder and nodules at the bladder neck. In particular there was a polypoid type lesion at the bladder neck causing considerable obstruction and made access to the bladder difficult. This had to be biopsied in order to fully access the bladder. The base of the bladder and trigone had multiple areas of severe inflammation and irritation. The right was more severe than the left however the left also there was no easily identified ureteral orifice. Did discuss options moving forward. Patient is not having severe fever. Does have continued episodes of pain. Discussed potential options for evaluation and management. Will plan to continue to monitor patient while he is inpatient. Are anticipating discharge and transfer to a tertiary center for more advanced cancer care and interventional radiology Admission and Anticipated Discharge Date Admission Date: June 24, 2023 Subjective Postop from catheter placement for obstruction issues. Attempted left stent placement however due to scarring inflammation and possible cancer involvement was unable to access the left ureter. Patient has been tolerating catheter. Has been dealing with episodes of pain however last evening there was a drastically decreased. has noticed some frequency and urgency. Has not had severe pain in the back and flank. Does have occasional burning and irritation. No severe episodes or major changes. No new nausea or vomiting. Had tolerated anesthesia without major problems Review of Systems Review of Systems: All systems reviewed & are unremarkable except as noted in HPI & below Physical Exam Physical Exam: General: Alert in no acute distress. Obese HEENT: Normocephalic Atraumatic. Inspection normal. Cranial Nerves 2-12 Grossly intact. Normal inspection of face. Normal inspection of neck. Psychologic: Normal affect. Respiratory: Nonlabored. No use of accessory muscles. No tachypnea or dyspnea. Cardiovascular: No tachycardia Skin: [place] and Dry. No rashes or visible lesions. Extremities/Lymphatics: No edema Abdomen: Soft Non-distended. No rebound or guarding. : Zamorano catheter in place with light red urine in bag. Mild pink appearance and tubing. Results & Data Vital Signs (Past 12 Hours) Vital Signs Temp Pulse Resp BP BP Pulse Ox O2 Del Method 06/25/23 10:19 37.0 C 76 16 152/71 H 90 Room Air 06/25/23 07:04 37.0 C 75 16 153/75 H 94 Room Air 06/25/23 03:05 36.8 C 98 H 18 113/70 94 Room Air 06/24/23 23:16 36.9 C 89 18 141/75 H 91 Room Air 06/24/23 22:55 Room Air PG Care Time/CCT Total # of Minutes Spent Total Time Spent with Patient: Total time spent is greater than 50% in coordination of care (as documented) at patient's floor/unit and/or counseling patient: Coding Level of Care Code 25273 SUB INP/OBS CARE 3/50MIN Diagnoses Ureterolithiasis N20.1 Elevated PSA R97.20 Urinary incontinence R32 Prostate cancer metastatic to bone C61; C79.51 Neuropathic pain M79.2
--- NOTE | 2023-06-25 16:09 | Billing Data ---
Date of Service June 24, 2023 Coding Level of Care Code 67733 INT INP/OBS CARE MIN Comment did not leave on 06/24, so disregard same day code
--- NOTE | 2023-06-25 16:09 | Billing Data ---
Date of Service June 25, 2023 Coding Level of Care Code 48904 IN/OBS DISCH 30 MIN/LESS
--- NOTE | 2023-07-04 10:50 | Pharmacy Report ---
ED Pharmacist Culture FollowUP - Culture Follow Up Note Date of Service: July 04, 2023 Notes:: PRELIMINARY urine cx results received in the ED today. [facility]. Culture result was forwarded to Dr Cast for review.
== END 2023-06-25 13:18 | disposition short-term general hospital (02) | DRG 669 ==
LOC: ED 05:10 → INTOOBSV 08:56 → 3W 08:56